=== PATIENT | female | born 1995 | race African-American/Black ===

== ENCOUNTER 2022-06-21 16:42 | Emergency (ER) | payer OTHER ==
[~2022-06-21] VITALS: Ht 154.9 cm; Wt 122.2 kg
[2022-06-21 17:38] LABS: URINE PREG TEST NEGATIVE (NEGATIVE)
[2022-06-21 19:25] LABS: GC DNA AMPLIFICATION NEGATIVE (NEGATIVE)
[2022-06-21] MEDS ORDERED: METR-265 PO (21:00)
[2022-06-21] MEDS ORDERED: metroNIDAZOLE (FLAGYL) 500MG TABLET PO ONE (21:05)
[2022-06-21 21:10] VITALS: BP 122/70
== END 2022-06-21 21:12 | disposition home or self-care (01) ==
LOC: M ED 16:42
DX: N76.0 Acute vaginitis (principal); D25.9 Leiomyoma of uterus, unspecified; Z79.899 Other long term (current) drug therapy

== ENCOUNTER 2023-02-21 12:18 | Emergency (ER) | payer OTHER ==
[~2023-02-21] VITALS: Ht 154.9 cm; Wt 123.9 kg
[~2023-02-21 12:18] MED LIST: METR-265 PO
[2023-02-21 13:03] LABS: BASO # 0.1 10^3/uL (0.0-0.2); BASO % 0.8 % (0.0-1.0); EOS # 0.1 10^3/uL (0.0-0.5); EOS % 0.8 % (0.0-3.0); HEMATOCRIT 38.4 % (36.0-47.0); LYMPH # 2.8 10^3/uL (1.5-5.0); LYMPH % 47.6 % (24.0-44.0); MEAN CORPUSCULAR HEMOGLOBIN 24.8 pg (27.0-33.0); MEAN CORPUSCULAR HGB CONC 31.3 g/dl (32.0-36.5); MEAN CORPUSCULAR VOLUME 79.3 fl (80.0-96.0); MONO # 0.5 10^3/uL (0.0-0.8); MONO % 8.4 % (2.0-8.0); NEUTROPHILS # 2.5 10^3/uL (1.5-8.5); NEUTROPHILS % 41.9 % (36.0-66.0); PLATELET COUNT, AUTOMATED 324 10^3/uL (150-450); RED BLOOD COUNT 4.84 10^6/uL (4.00-5.40); WHITE BLOOD COUNT 5.9 10^3/uL (4.0-10.0)
[2023-02-21 13:21] LABS: BLOOD UREA NITROGEN 11 MG/DL (9-23); CALCIUM LEVEL 8.8 MG/DL (8.5-10.1); CARBON DIOXIDE LEVEL 28 MMOL/L (20-31); CHLORIDE LEVEL 105 MMOL/L (98-107); CREATININE FOR GFR 0.72 MG/DL (0.55-1.30); GLOMERULAR FILTRATION RATE > 60.0 (>60); GLUCOSE, FASTING 109 MG/DL (60-100); HCG, SERUM QUANTITATIVE < 2.6 MIU/ML (<4.2); POTASSIUM SERUM 4.3 MMOL/L (3.5-5.1); SODIUM LEVEL 139 MMOL/L (136-145)
[2023-02-21 16:39] VITALS: BP 110/68; TEMP 98; O2SAT 98
== END 2023-02-21 16:41 | disposition home or self-care (01) ==
LOC: M ED 12:18
DX: N93.8 Other specified abnormal uterine and vaginal bleeding (principal)